=== PATIENT | female | born 1990 | race Caucasian/White ===

== ENCOUNTER 2016-11-24 14:59 | Emergency (ER) | payer MEDICAID, OTHER ==
[~2016-11-24] VITALS: Ht 157.5 cm; Wt 80.0 kg
[2016-11-24 15:04] VITALS: Ht 157.5 cm; Wt 80.0 kg
[2016-11-24 15:51] LABS: URINE BLOOD (Dip) POC Trace-intact (NEGATIVE)
--- NOTE | 2016-11-24 16:21 | RADRPT ---
PROCEDURE: US Pelvis. CLINICAL INDICATION: Pelvic pain TECHNIQUE: Multiple sonographic images of the pelvis were obtained utilizing a transabdominal and endovaginal technique. The images were reviewed on a PACS workstation. COMPARISON: None. FINDINGS: The uterus is visualized and measures 9.3 x 4.8 x 7.6 cm in size. The endometrial echo complex is t hickened and measures 23.4 mm. There is no evidence for free fluid. The right ovary has a normal ech otexture and measures 2.5 x 2.3 x 2.4 cm. The left ovary has a normal echotexture and measures 2.3 x 2 x 2.4 cm. No adnexal masses are noted. IMPRESSION: Significantly thickened endometrial lining which may be physiologic in nature. A followup in 6 week s to ensure resolution is suggested. RPTAT: HPNM Physician Amanda Date Time Electronically viewed and signed by Physician Amanda on 11/24/2016 16:21 /
[2016-11-24] MEDS ORDERED: NITR-58 PO (16:29)
[2016-11-24] MEDS ORDERED: ACET500C5 PO (16:29)
[2016-11-24] MEDS ORDERED: ACYC800T57 PO (16:33)
--- NOTE | 2016-11-24 16:40 | ERD ---
ER Documentation Chief Complaint Date/Time DATE: 11/24/16 TIME: 16:36 Chief Complaint BLISTERS ON GENITAL AREA HPI Patient is a 26-year-old female here with who presents to the ED with dysuria urgency, vaginal sore and pelvic pain 2 days. Patient denies history of STD in the past. Patient states that she is sexually active with her . Patient does not use protection. Patient states that she has had bacterial vaginosis and yeast infection in the past. Denies vaginal bleeding. Denies headache or dizziness, abdominal pain, nausea, vomiting or diarrhea. States that her last normal menstrual period was 10/23/16. ROS All systems reviewed and are negative except as per history of present illness. Medications Home Meds Active Scripts Acyclovir* (Zovirax*) 800 Mg Tablet, 400 MG PO TID for 7 Days, TAB Prov:CHEO RAO PA-C 11/24/16 Acetaminophen* (Tylophen*) 500 Mg Capsule, 1 CAP PO Q6H Y for PAIN AND OR ELEVATED TEMP, #20 CAP Prov:CHEO RAO PA-C 11/24/16 Nitrofurantoin Monohyd Macrocr* (Macrobid*) 100 Mg Capsr, 100 MG PO BID for 7 Days, CAP Prov:CHEO RAO PA-C 11/24/16 PMhx/Soc History of Surgery: No Anesthesia Reaction: No Hx Neurological Disorder: No Hx Respiratory Disorders: No Hx Cardiac Disorders: No Hx Psychiatric Problems: No Hx Miscellaneous Medical Probl: No Hx Alcohol Use: No Hx Substance Use: No Hx Tobacco Use: No Smoking Status: Never smoker FmHx Family History: No coronary disease, No diabetes, No other Physical Exam Vitals Vital Signs Date Time Temp Pulse Resp B/P Pulse Ox O2 Delivery O2 Flow Rate FiO2 11/24/16 15:04 98.1 75 18 126/69 99 Physical Exam GENERAL: Well-developed, well-nourished female. Appears in no acute distress. HEAD: Normocephalic, atraumatic. EYES: Pupils are equally reactive bilaterally. EOMs grossly intact. No conjunctival erythema. ENT: Moist mucous membranes. No uvula deviation. No kissing tonsils. No exudates. NECK: Supple. No lymphadenopathy or thyromegaly. No meningismus. negative kernig. negative brudinski. LUNG: Clear to auscultation bilaterally. No rhonchi, wheezing, rales or coarse breath sounds. HEART: Regular rate and rhythm. No murmurs, rubs or gallops. ABDOMEN: No scars, ecchymosis or rashes noted. Soft, nontender, and nondistended. Positive bowel sounds in all four quadrants. No rebound tenderness , no guarding. (-) McBurneys point tenderness. No CVA tenderness. BACK: No midline tenderness. Bilateral pelvic pain. : One herpetic sore on the inner vagina. No CMT. No abnormal discharge. Extremities: Equal pulses bilaterally. No peripheral clubbing, cyanosis or edema. No unilateral leg swelling. NEUROLOGIC: Alert and oriented. Moving all four extremities. 5/5 strength in all extremities. Normal speech. Steady gait. SKIN: Normal color. Warm and dry. No rashes or lesions. Capillary refill < 2 seconds Results 24 hrs Laboratory Tests Test 11/24/16 15:57 Bedside Urine pH (LAB) 6.5 Bedside Urine Protein (LAB) 2+ Bedside Urine Glucose (UA) Negative Bedside Urine Ketones (LAB) Trace Bedside Urine Blood Trace-intact Bedside Urine Nitrite (LAB) Negative Bedside Urine Leukocyte Esterase (L 3+ Procedures/MDM ER COURSE: I kept the patient and/or family informed of laboratory and diagnostic imaging results throughout the emergency room course. IMAGING STUDIES [address] [place] [address] Radiology Main Line: [phone] DIAGNOSTIC IMAGING REPORT Patient: ELIJAH MENDES : 1990 Age: 26 Sex: F [id number] [id number] DOS: 11/24/16 [facility] Ordering MD: CHEO RAO PA-C Location: FTE Room/Bed: PROCEDURE: US Pelvis. CLINICAL INDICATION: Pelvic pain TECHNIQUE: Multiple sonographic images of the pelvis were obtained utilizing a transabdominal and endovaginal technique. The images were reviewed on a PACS workstation. COMPARISON: None. FINDINGS: The uterus is visualized and measures 9.3 x 4.8 x 7.6 cm in size. The endometrial echo complex is thickened and measures 23.4 mm. There is no evidence for free fluid. The right ovary has a normal echotexture and measures 2.5 x 2.3 x 2.4 cm. The left ovary has a normal echotexture and measures 2.3 x 2 x 2.4 cm. No adnexal masses are noted. IMPRESSION: Significantly thickened endometrial lining which may be physiologic in nature. A followup in 6 weeks to ensure resolution is suggested. RPTAT: HPNM Physician Amanda Date Time Electronically viewed and signed by Tariq Moore Physician on 11/24/2016 16 :21 / CC: CHEO RAO PA-C MEDICAL DECISION MAKING: This is a 26-year-old female who presents with dysuria, urgency and vaginal sores 2 days.. Vital signs were reviewed. Patient is afebrile. Patient is not hypoxic. Negative test. Patient's urine dip showed 3+ leukocytes. No nitrites. Patient's ultrasound was within normal limits. Patient stated that she recently received a Rocephin injection yesterday at the emergency department. Patient has a UTI as well as herpes. Low suspicion for ovarian torsion, PID, tuboovarian abscess, ectopic , bowel obstruction, pyelonephritis, UTI, appendicitis, cervicitis, septic , molar , HELLP syndrome, preeclampsia, eclampsia, placenta previa, placenta abruptia. Her urine was sent for gonorrhea and chlamydia testing. DISCHARGE: At this time, patient is stable for discharge and outpatient management with no new complaints during the ER course. Patient was sent home with acyclovir, Tylenol and Macrobid. Patient will be discharged home with instructions to recheck for new or worsening symptoms such as fever, nausea, weakness, LOC and to follow up with primary care in the next 1-2 days. Patient was advised to return to the ER for any new or worsening symptoms. Plan was discussed and patient and/or family understands and agrees. Home instructions were given. Departure Diagnosis: Primary Impression: Cystitis Additional Impression: Herpes Condition: Stable Patient Instructions: Bladder Infection (Cystitis), Female (Child) Additional Instructions: Marcin taylor doctor MAANA y jaime araseli LIBBY PARA DENTRO DE 1-2 KHOURY.Dgale a la secretaria que nosotros le instruimos hacer esta libby.Avise o llame si knowles condicin se empeora antes de la libby. Regresa aqui si peor o no mejor. CHEO RAO PA-C Nov 24, 2016 16:40
[2016-11-24] MEDS ORDERED: ACETAMINOPHEN 325 MG TAB PO ONE (17:00)
[2016-11-24 17:05] VITALS: BP 118/65; PULSE 76; RESP 19; TEMP 98.4
== END 2016-11-24 17:06 | disposition home or self-care (01) ==
LOC: FTE 14:59
DX: N30.90 Cystitis, unspecified without hematuria (principal); B00.9 Herpesviral infection, unspecified; R10.2 Pelvic and perineal pain
CPT/HCPCS: 76830; 76856; 81003; 87591; Z7502; Z7610

== ENCOUNTER 2017-03-22 10:38 | Emergency (ER) | payer MEDICAID ==
[~2017-03-22] VITALS: Ht 152.4 cm; Wt 77.2 kg
[~2017-03-22 10:38] MED LIST: ACET500C5 PO; ACYC800T57 PO; NITR-58 PO
[2017-03-22 10:42] VITALS: Ht 152.4 cm; Wt 77.2 kg
[2017-03-22] MEDS ORDERED: IBUP-1542 PO (12:13)
[2017-03-22] MEDS ORDERED: ACYC800T57 PO (12:13)
[2017-03-22] MEDS ORDERED: ACET500C5 PO (12:14)
[2017-03-22] MEDS ORDERED: HYDROCODONE/APAP (5/325) TAB PO ONE (12:30)
--- NOTE | 2017-03-22 16:37 | ERD ---
ER Documentation Chief Complaint Chief Complaint vaginal pain/itching x 2 weeks HPI This is 26-year-old female who presents the emergency department today complaining of vaginal burning, itching and pain. States she has tried Monistat cream with no improvement in symptoms. Denies any fevers or chills. States she has 1 sexual partner. Denies any abdominal pain. ROS All systems reviewed and are negative except as per history of present illness. Medications Home Meds Active Scripts Acetaminophen* (Tylophen*) 500 Mg Capsule, 1 CAP PO Q6H Y for PAIN AND OR ELEVATED TEMP, #30 CAP Prov:PROPATTI NOVAK PA-C 03/22/17 Ibuprofen* (Motrin*) 600 Mg Tab, 600 MG PO Q6, #30 TAB Prov:PROPATTI NOVAK PA-C 03/22/17 Acyclovir* (Zovirax*) 800 Mg Tablet, 400 MG PO TID for 10 Days, TAB Prov:PROPATTI NOVAK PA-C 03/22/17 Acyclovir* (Zovirax*) 800 Mg Tablet, 400 MG PO TID for 7 Days, TAB Prov:PRADIPTARIANCHEO PA-C 11/24/16 Acetaminophen* (Tylophen*) 500 Mg Capsule, 1 CAP PO Q6H Y for PAIN AND OR ELEVATED TEMP, #20 CAP Prov:CHEO RAO PA-C 11/24/16 Nitrofurantoin Monohyd Macrocr* (Macrobid*) 100 Mg Capsr, 100 MG PO BID for 7 Days, CAP Prov:PRADIPTARICHEO ACUNA PA-C 11/24/16 Allergies Allergies: Coded Allergies: No Known Allergy (Unverified , 03/22/17) PMhx/Soc Medical and Surgical Hx: pt denies Medical Hx History of Surgery: Yes (csection x1) Anesthesia Reaction: No Hx Neurological Disorder: No Hx Respiratory Disorders: No Hx Cardiac Disorders: No Hx Psychiatric Problems: No Hx Miscellaneous Medical Probl: No Hx Alcohol Use: No Hx Substance Use: No Hx Tobacco Use: No Smoking Status: Never smoker Physical Exam Vitals Vital Signs Date Time Temp Pulse Resp B/P Pulse Ox O2 Delivery O2 Flow Rate FiO2 03/22/17 10:42 97.9 63 18 119/72 97 Physical Exam Const: NAD Head: Atraumatic Eyes: Normal Conjunctiva ENT: Normal External Ears, Nose and Mouth. Neck: Full range of motion..~ No meningismus. Resp: Clear to auscultation bilaterally Cardio: Regular rate and rhythm, no murmurs Abd: Soft, non tender, non distended. Normal bowel sounds : External vaginal exam with evidence of a few small lesions on her labia minora and labia majora. No evidence of yeast or purulent drainage. Skin: No petechiae or rashes Neur: Awake and alert Psych: Normal Mood and Affect Results 24 hrs Current Medications Medications (Trade) Dose Ordered Sig/Kanchan Route PRN Reason Start Time Stop Time Status Last Admin Dose Admin Acetaminophen/ Hydrocodone Bitart ([place] (5/325)) 1 tab ONCE ONCE PO 03/22/17 12:30 03/22/17 12:30 DC 03/22/17 12:22 Procedures/MDM This is a 26-year-old female who presents the emergency department today complaining of burning and pain and itching in her vaginal area and pain with urination. Upon further questioning patient denied that she has abdominal pain when she urinates she states that the pain is in her vagina when the urine drips in the area. I did do a vaginal exam and there is no evidence of yeast however patient had a few small vesicular lesions that are erythematous and open. Patient symptoms most likely related to herpes simplex virus. I have explained this to the patient. I do not feel that this is a yeast infection and do not feel she requires Monistat or Diflucan. Explained to the patient that she may have outbreaks in the future and that her may experience outbreaks. Patient is afebrile and otherwise well-appearing. There is no purulent drainage. Low suspicion for gonorrhea or chlamydia at this time. I do not feel the patient requires a UA of low suspicion for urinary tract infection. Review of patient's medical records patient has been seen once before for pelvic pain and herpes. Did not mention this at intake. Patient was given Motrin here in the emergency department. She was given a prescription for Tylenol, Motrin and acyclovir for home. At this time the patient is stable for discharge and outpatient management. Patient should follow up with their PCP in the next 1-2 days. They may return to the emergency department sooner for any persistent or worsening of symptoms. Patient understood and agreed with the plan. Departure Diagnosis: Primary Impression: Pain of female genitalia Condition: Fair Patient Instructions: Herpes Genitalis, Hsv: Type Ii Referrals: [employer] [address] [facility] [address] [place] [address]ABUSLEME DIMITRY [address] [place] [address] DR. VIGIL, PATILLAS [address] [place] [address] DR GUEVARA, [facility] [address] [facility], [facility] [address], [facility] [address] [facility] [address] [place] [address] [facility] [place] [address] [place] [address] [facility] [address] - NIKA FOSTER [address], [facility] [address] [address] JEAN-BAPTISTE, FELI [address] [facility]. [address], [facility] [address] [address] SALINAS, [facility] [address] [place], [place] [id number] [facility] () Usted se joe hecho un examen mdico de control que le indica que no est en araseli condicin que requiera tratamiento urgente en el Departamento de Emergencia. Un estudio ms profundo y el tratamiento de knowles condicin pueden esperar sin ningn riesgo hasta que usted sea atendida/o en el consultorio de knowles mdico o araseli cl opal. Es responsabilidad suya arreglar araseli libby para el seguimiento del fany. MANEJO DE CONDICIONES NO URGENTES EN EL FUTURO 1) Si usted tiene un mdico de atencin primaria: Usted debera llamar a knowles mdico de atencin primaria antes de venir al departamento de emergencia. Despus de las horas de consultorio, knowles doctor o knowles asociado/a est disponible por telfono. El mdico o enfermero de andrade en el servicio telefnico puede asesorarle por brad medio para atender el problema, o fany contrario se puede programar araseli libby. 2) Si usted no tiene un mdico de atencin primaria: Llame al mdico o clnica de referencia que aparece abajo sally las horas de consultorio para hacer araseli libby para que le vean. CLINICAS: [facility] [phone] [address] [facility] [facility] [facility] [address] [facility] [phone] [facility] [phone] [address] [facility]. [place] [address] [phone] [facility]. [place] [id number] [phone] [facility]. [phone] Additional Instructions: Llame al doctor MAANA y jaime araseli LBIBY PARA DENTRO DE 1-2 KHOURY.Dgale a la secretaria que nosotros le instruimos hacer esta libby.Avise o llame si knowles condicin se empeora antes de la libby. Regresa aqui si peor o no mejor. Take medication as prescribed. Take Tylenol or Motrin for pain PATTI BECKETT PA-C Mar 22, 2017 16:37
== END 2017-03-22 12:24 | disposition home or self-care (01) ==
LOC: FTE 10:38
DX: N90.89 Other specified noninflammatory disorders of vulva and perineum (principal)
CPT/HCPCS: Z7502; Z7610; 99284

== ENCOUNTER 2018-10-03 10:39 | Emergency (ER) | payer MEDICAID ==
[~2018-10-03] VITALS: Ht 160 cm; Wt 71.8 kg
[~2018-10-03 10:39] MED LIST changes: +ACYC800T5 PO; -ACYC800T57 PO; +IBUP-1542 PO
[2018-10-03 10:45] VITALS: BP 113/61; PULSE 76; RESP 18; Ht 160 cm; Wt 71.8 kg
[2018-10-03] MEDS ORDERED: ONDANSETRON (ODT) 4 MG TAB ODT STA (11:33)
[2018-10-03] MEDS ORDERED: ONDA4TAB14 PO (11:46)
--- NOTE | 2018-10-03 12:13 | ERD ---
ER Documentation Chief Complaint Chief Complaint c/o generalized weakness x 4 days HPI Patient is a 27-year-old female presents the ER for concerns of abnormal blood work. Patient states she had blood work done in 09-27-18 with her primary care provider Zohra Ramirez. Patient states she had a copy of the labs and she does not know what her lab values are showing. The only abnormal lab noted on the patient's CBCs, CMP and liver panel was triglyceride level of 512. Patient states she has been feeling nervous due to his abnormal lab value. Patient denies weakness contrary to triage note. Patient reports vomiting 2-3 times. Patient has not vomited today. Patient denies any chest pain or shortness of breath. Patient denies any fevers, chills, abdominal pain, diarrhea. Patient denies . ROS All systems reviewed and are negative except as per history of present illness. Medications Home Meds Active Scripts Ondansetron (Ondansetron Odt) 4 Mg Tab.rapdis, 4 MG PO Q6H PRN for NAUSEA AND/OR VOMITING, #10 TAB Prov:JOHN TARIQ PA-C 10/03/18 Acetaminophen* (Tylophen*) 500 Mg Capsule, 1 CAP PO Q6H PRN for PAIN AND OR ELEVATED TEMP, #30 CAP Prov:PATTI BECKETT PA-C 03/22/17 Ibuprofen* (Motrin*) 600 Mg Tab, 600 MG PO Q6, #30 TAB Prov:PATTI BECKETT PA-C 03/22/17 Acyclovir* (Zovirax*) 800 Mg Tablet, 400 MG PO TID for 10 Days, TAB Prov:PATTI BECKETT PA-C 03/22/17 Acyclovir* (Zovirax*) 800 Mg Tablet, 400 MG PO TID for 7 Days, TAB Prov:CHEO RAO PA-C 11/24/16 Acetaminophen* (Tylophen*) 500 Mg Capsule, 1 CAP PO Q6H PRN for PAIN AND OR ELEVATED TEMP, #20 CAP Prov:CHEO RAOC 11/24/16 Nitrofurantoin Monohyd Macrocr* (Macrobid*) 100 Mg Capsr, 100 MG PO BID for 7 Days, CAP Prov:CHEO RAOC 11/24/16 Allergies Allergies: Coded Allergies: No Known Allergy (Unverified , 03/22/17) PMhx/Soc History of Surgery: Yes (csection x1) Anesthesia Reaction: No Hx Neurological Disorder: No Hx Respiratory Disorders: No Hx Cardiac Disorders: No Hx Psychiatric Problems: No Hx Miscellaneous Medical Probl: No Hx Alcohol Use: No Hx Substance Use: No Hx Tobacco Use: No Smoking Status: Never smoker FmHx Family History: No diabetes Physical Exam Vitals Vital Signs Date Temp Pulse Resp B/P (MAP) Pulse Ox O2 O2 Flow FiO2 Time Delivery Rate 10/03/18 98.3 76 18 113/61 98 10:45 (78) Physical Exam GENERAL: Well-developed, well-nourished female. Appears in no acute distress. HEAD: Normocephalic, atraumatic. EYES: Pupils are equally reactive bilaterally. EOMs grossly intact. No conjunctival erythema. ENT: Moist mucous membranes. No uvula deviation. No kissing tonsils. NECK: Supple. No meningismus. Normal range of motion of the neck. LUNG: Clear to auscultation bilaterally. No rhonchi, wheezing, rales or coarse breath sounds. HEART: Regular rate and rhythm. No murmurs, rubs or gallops. ABDOMEN: No scars, ecchymosis or rashes noted. Soft, nontender, and nondistended . Positive bowel sounds in all four quadrants. No rebound tenderness, no guarding. (-) McBurney's point tenderness. No CVA tenderness. EXTREMITIES: Equal pulses bilaterally. No peripheral clubbing, cyanosis or edema. No unilateral leg swelling. NEUROLOGIC: Alert and oriented. Moving all four extremities without any difficulty. Normal speech. Steady gait. SKIN: Normal color. Warm and dry. No rashes or lesions. Results 24 hrs Laboratory Tests Test 10/03/18 11:48 Bedside Urine pH (LAB) 5.5 Bedside Urine Protein (LAB) Trace Bedside Urine Glucose (UA) Negative Bedside Urine Ketones (LAB) Negative Bedside Urine Blood Negative Bedside Urine Nitrite (LAB) Negative Bedside Urine Leukocyte Esterase (L Negative POC Beta HCG, Qualitative NEGATIVE Current Medications Medications Dose Sig/Kanchan Start Time Status Last (Trade) Ordered Route PRN Stop Time Admin Dose Reason Admin Ondansetron 4 mg ONCE STAT 10/03/18 DC 10/03/18 HCl (Zofran ODT 11:33 10/03/18 11:44 Odt) 11:34 Procedures/MDM MEDICAL DECISION MAKING: Patient is a 27-year-old female, no past medical history, presents the ER for concerns of feeling nervous of her recent abnormal labs.. Vital signs were reviewed. Patient is afebrile. Patient was not hypoxic. Patient was hemodynamically stable. Blood work done with her primary care provider on 09/27/18. Patient CBC was within normal limits. Patient's CMP was within normal limits. Patient's liver panel did show elevated triglycerides of 512. Patient states she is been feeling nauseous and anxious secondary to this abnormal value. Patient presents to the ER requesting explanation to what this lab value means. Explained to the patient that her elevated triglyceride level needs to be followed by her primary care provider. Patient was advised on dietary changes. Patient was advised to increase exercise daily. Patient may need to be started on medication however she was advised she will need to discuss this with her primary care provider. Urine test was negative and urine dip was negative for acute in fection. Low suspicion for . PRESCRIPTION: Zofran DISCHARGE: At this time, patient is stable for discharge and outpatient management. I have instructed the patient to follow-up with his/her primary care physician in 1-2 days. I have discussed with the patient the possibility of needing to see a specialist for further workup and imaging studies if symptoms persist. I have instructed the patient to promptly return to the ER for any new or worsening symptoms including increased pain, fever, nausea, vomiting, weakness or LOC. The patient and/or family expressed understanding of and agreement with this plan. All questions were answered. Home care instructions were provided. Disclaimer: Inadvertent spelling and grammatical errors are likely due to Ekotrope/dictation software use and do not reflect on the overall quality of patient care. Also, please note that the electronic time recorded on this note does not necessarily reflect the actual time of the patient encounter. Departure Diagnosis: Primary Impression: Elevated triglycerides with high cholesterol Additional Impressions: Anxiousness Nausea Condition: Fair Patient Instructions: Triglycerides Referrals: COMMUNITY CLINICS YOU HAVE RECEIVED A MEDICAL SCREENING EXAM AND THE RESULTS INDICATE THAT YOU DO NOT HAVE A CONDITION THAT REQUIRES URGENT TREATMENT IN THE EMERGENCY DEPARTMENT. FURTHER EVALUATION AND TREATMENT OF YOUR CONDITION CAN WAIT UNTIL YOU ARE SEEN IN YOUR DOCTORS OFFICE WITHIN THE NEXT 1-2 DAYS. IT IS YOUR RESPONSIBILITY TO MAKE AN APPOINTMENT FOR FOLOW-UP CARE. IF YOU HAVE A PRIMARY DOCTOR --you should call your primary doctor and schedule an appointment IF YOU DO NOT HAVE A PRIMARY DOCTOR YOU CAN CALL OUR PHYSICIAN REFERRAL HOTLINE AT IF YOU CAN NOT AFFORD TO SEE A PHYSICIAN YOU CAN CHOSE FROM THE FOLLOWING [facility] [address] [facility] [address] [facility] [address] [facility] [address] [facility] [address] [facility]. [facility] [address] [facility]. [facility] YOU HAVE RECEIVED A MEDICAL SCREENING EXAM AND THE RESULTS INDICATE THAT YOU DO NOT HAVE A CONDITION THAT REQUIRES URGENT TREATMENT IN THE EMERGENCY DEPARTMENT. FURTHER EVALUATION AND TREATMENT OF YOUR CONDITION CAN WAIT UNTIL YOU ARE SEEN IN YOUR DOCTORS OFFICE WITHIN THE NEXT 1-2 DAYS. IT IS YOUR RESPONSIBILITY TO MAKE AN APPOINTMENT FOR FOLOW-UP CARE. IF YOU HAVE A PRIMARY DOCTOR --you should call your primary doctor and schedule and appointment IF YOU DO NOT HAVE A PRIMARY DOCTOR YOU CAN CALL OUR PHYSICIAN REFERRAL HOTLINE AT . IF YOU CAN NOT AFFORD TO SEE A PHYSICIAN YOU CAN CHOSE FROM THE FOLLOWING [facility] [address] [place] [address] [facility] [address] [place] [address] [facility] [address] [place] [address] Additional Instructions: Llamar knowles doctor para merissa resultos de pruebas. Call your primary care doctor TOMORROW for an appointment during the next 1-2 days.See the doctor sooner or return here if your condition worsens before your appointment time. JOHN TARIQ PA-C Oct 03, 2018 12:13
== END 2018-10-03 12:10 | disposition home or self-care (01) ==
LOC: FTE 10:39
DX: E78.2 Mixed hyperlipidemia (principal); F41.9 Anxiety disorder, unspecified
CPT/HCPCS: 81003; 81025; Z7502; Z7610; 99283